=== PATIENT | male | born 1960 | race Caucasian/White ===

== ENCOUNTER 2016-09-07 13:53 | Inpatient (IN) | payer SELFPAY ==
[~2016-09-07] VITALS: Ht 177.8 cm; Wt 71.7 kg
[~2016-09-07 13:53] MED LIST: ASPI81TA11 PO; ATOR20TA42 PO; HYDRA50 PO; PENT400 PO; PERC5TAB12 PO
[2016-09-07 14:01] VITALS: BP 159/78; PULSE 109; RESP 14; TEMP 98.4; O2SAT 96
--- NOTE | 2016-09-07 14:34 | PD ---
HPI Chief Complaint: Abdominal Pain Time Seen by Provider: 14:29 Travel History International Travel<30 days: No Contact w/Intl Traveler<30days: No Traveled to known affect area: No History of Present Illness HPI 56-year-old male presents to the emergency department for evaluation of generalized abdominal pain that started abruptly 3-4 hours ago. Denies nausea, vomiting, diarrhea, constipation. Patient had aortobifemoral bypass under general anesthesia by Dr. Subrmaanian in March 2016. He also reports history of asthma, but denies taking any current medications. Patient denies any other previous abdominal surgeries. Patient denies any fevers or chills. He complains of epigastric abdominal tenderness, but denies any chest pain or shortness of breath.. PFSH Past Medical History Asthma: Yes Cancer: No Cardiovascular Problems: Yes Diabetes: No Diminished Hearing: No Endocrine: No Genitourinary: No Hepatitis: No Hiatal Hernia: No Immune Disorder: No Musculoskeletal: No Neurologic: No Psychiatric: No Reproductive: No Respiratory: Yes (asthma) Thyroid Disease: No Past Surgical History Abdominal Surgery: No AICD: No Cardiac Surgery: No Ear Surgery: No Endocrine Surgery: No Eye Surgery: No Genitourinary Surgery: No Gynecologic Surgery: No Joint Replacement: No Oral Surgery: No Pacemaker: No Thoracic Surgery: No Tonsillectomy: Yes Social History Alcohol Use: Yes (SOC) Tobacco Use: Yes (1PPD) Substance Use: No Allergies-Medications (Allergen,Severity, Reaction): Coded Allergies: No Known Allergies (Verified , 09/07/16) Reported Meds & Prescriptions Reported Meds & Active Scripts Active Reported Aspirin 81 Mg Chew 81 Mg CHEW DAILY Review of Systems Except as stated in HPI: all other systems reviewed are Neg Physical Exam Narrative GENERAL: Well-developed well-nourished male patient, ambulatory. Afebrile. SKIN: Warm and dry. HEAD: Normocephalic. Atraumatic. EYES: No scleral icterus. No injection or drainage. NECK: Supple, trachea midline. No JVD or lymphadenopathy. CARDIOVASCULAR: Regular rate and rhythm without murmurs, gallops, or rubs. RESPIRATORY: Breath sounds equal bilaterally. No accessory muscle use. Lungs sounds are clear to auscultation. GASTROINTESTINAL: Abdomen soft and nondistended. Patient has generalized tenderness to palpation. MUSCULOSKELETAL: No cyanosis, or edema. BACK: Nontender without obvious deformity. No CVA tenderness. Data Data Last Documented VS Vital Signs Date Time Temp Pulse Resp B/P Pulse Ox O2 Delivery O2 Flow Rate FiO2 09/07/16 16:54 97 16 172/82 95 Room Air 09/07/16 14:01 98.4 Orders Complete Blood Count With Diff (09/07/16 14:27) Comprehensive Metabolic Panel (09/07/16 14:27) Lipase (09/07/16 14:27) Urinalysis - C+S If Indicated (09/07/16 14:27) Electrocardiogram (09/07/16 14:27) Ct Abd/Pel W Iv Contrast(Rout) (09/07/16 17:11) Sodium Chlor 0.9% 1000 Ml Inj (Ns 1000 M (09/07/16 17:15) Labs Laboratory Tests Test 09/07/16 15:00 White Blood Count 23.5 TH/MM3 Red Blood Count 4.68 MIL/MM3 Hemoglobin 14.3 GM/DL Hematocrit 41.7 % Mean Corpuscular Volume 89.0 FL Mean Corpuscular Hemoglobin 30.6 PG Mean Corpuscular Hemoglobin 34.4 % Concent Red Cell Distribution Width 14.4 % Platelet Count 345 TH/MM3 Mean Platelet Volume 8.3 FL Neutrophils (%) (Auto) 95.3 % Lymphocytes (%) (Auto) 1.6 % Monocytes (%) (Auto) 2.8 % Eosinophils (%) (Auto) 0.0 % Basophils (%) (Auto) 0.3 % Neutrophils # (Auto) 22.4 TH/MM3 Lymphocytes # (Auto) 0.4 TH/MM3 Monocytes # (Auto) 0.7 TH/MM3 Eosinophils # (Auto) 0.0 TH/MM3 Basophils # (Auto) 0.1 TH/MM3 CBC Comment DIFF FINAL Differential Comment Sodium Level 139 MEQ/L Potassium Level 3.8 MEQ/L Chloride Level 102 MEQ/L Carbon Dioxide Level 30.1 MEQ/L Anion Gap 7 MEQ/L Blood Urea Nitrogen 10 MG/DL Creatinine 0.89 MG/DL Estimat Glomerular Filtration 88 ML/MIN Rate Random Glucose 92 MG/DL Calcium Level 8.7 MG/DL Total Bilirubin 2.6 MG/DL Aspartate Amino Transf 163 U/L (AST/SGOT) Alanine Aminotransferase 122 U/L (ALT/SGPT) Alkaline Phosphatase 569 U/L Total Protein 7.1 GM/DL Albumin 3.1 GM/DL Lipase GREATER THAN 73321 U/L MDM Medical Decision Making Medical Screen Exam Complete: Yes Emergency Medical Condition: Yes Medical Record Reviewed: Yes Differential Diagnosis Pancreatitis versus gastroenteritis versus diverticulitis Narrative Course 56-year-old male presents to the emergency department for evaluation of abdominal pain that started 3-4 hours prior to arrival. EKG, CBC, CMP, lipase are ordered and pending. Workup is initiated in triage. Patient will be moved to medical pod for further evaluation and disposition. Patricia Gibbs Sep 07, 2016 14:33
[2016-09-07] MEDS ORDERED: ASPI81CH CHEW (15:08)
[2016-09-07 15:23] LABS: AUTOMATED NEUTROPHIL # 22.4 TH/MM3 (1.8-7.7); BASOPHIL # 0.1 TH/MM3 (0-0.2); BASOPHIL % 0.3 % (0.0-2.0); HEMATOCRIT 41.7 % (39.0-51.0); HEMO FLAGS DIFF FINAL; LYMPH % 1.6 % (9.0-44.0); LYMPHOCYTE # 0.4 TH/MM3 (1.0-4.8); MEAN CORPUSCULAR HEMOGLOBIN 30.6 PG (27.0-34.0); MEAN CORPUSCULAR HGB CONC 34.4 % (32.0-36.0); MONO % 2.8 % (0.0-8.0); NEUT % 95.3 % (16.0-70.0); PLATELET COUNT 345 TH/MM3 (150-450); RED BLOOD COUNT 4.68 MIL/MM3 (4.50-5.90); RED CELL DISTRIBUTION WIDTH 14.4 % (11.6-17.2); WHITE BLOOD COUNT 23.5 TH/MM3 (4.0-11.0)
[2016-09-07 16:04] LABS: ALKALINE PHOSPHATASE 569 U/L (45-117); ALT (GPT) 122 U/L (12-78); ANION GAP 7 MEQ/L (5-15); AST (GOT) 163 U/L (15-37); BICARBONATE 30.1 MEQ/L (21.0-32.0); BLOOD UREA NITROGEN 10 MG/DL (7-18); CHLORIDE 102 MEQ/L (98-107); GLOMERULAR FILTRATION RATE 88 ML/MIN (>89); POTASSIUM 3.8 MEQ/L (3.5-5.1); SODIUM (NA) 139 MEQ/L (136-145); TOTAL BILIRUBIN ADULT 2.6 MG/DL (0.2-1.0)
--- NOTE | 2016-09-07 16:52 | EKG ---
Date Performed: 09/07/2016 Time Performed: 15:06:38 PTAGE: 56 years EKG: SINUS TACHYCARDIA ABNORMAL RHYTHM ECG COMPARED TO PRIOR ELECTROCARDIOGRAM, Rate has increas ed. PREVIOUS TRACING : 04/18/2016 14.59 DOCTOR: Axel Castellano Interpretating Date/Time 09/07/2016 16:51:51
[2016-09-07 16:54] VITALS: BP 172/82; PULSE 97; RESP 16; O2SAT 95
[2016-09-07] MEDS ORDERED: SODIUM CHLOR 0.9% 1000 ML INJ 1,000 ML IV ONE (17:15)
--- NOTE | 2016-09-07 17:35 | PD ---
Physical Exam Date Seen by Provider: Sep 07, 2016 Data Data Last Documented VS Vital Signs Date Time Temp Pulse Resp B/P Pulse Ox O2 Delivery O2 Flow Rate FiO2 09/07/16 16:54 97 16 172/82 95 Room Air 09/07/16 14:01 98.4 Orders Complete Blood Count With Diff (09/07/16 14:27) Comprehensive Metabolic Panel (09/07/16 14:27) Lipase (09/07/16 14:27) Urinalysis - C+S If Indicated (09/07/16 14:27) Electrocardiogram (09/07/16 14:27) Ct Abd/Pel W Iv Contrast(Rout) (09/07/16 17:11) Sodium Chlor 0.9% 1000 Ml Inj (Ns 1000 M (09/07/16 17:15) Iohexol 350 Inj (Omnipaque 350 Inj) (09/07/16 18:24) Admit To Inpatient (09/07/16 ) Vital Signs (Adult) Q4H (09/07/16 18:30) Activity Oob Ad Nilda (09/07/16 18:30) Intake + Output BHAVANA.QSHIFT (09/07/16 18:30) Diet Npo (09/07/16 Dinner) Sodium Chlor 0.9% 1000 Ml Inj (Ns 1000 M (09/07/16 18:30) Sodium Chloride 0.9% Flush (Ns Flush) (09/07/16 18:30) Sodium Chloride 0.9% Flush (Ns Flush) (09/07/16 21:00) Morphine Inj (Morphine Inj) (09/07/16 18:30) Ondansetron Inj (Zofran Inj) (09/07/16 18:30) Lipase (09/08/16 06:00) Comprehensive Metabolic Panel (09/07/16 18:30) Enoxaparin Inj (Lovenox Inj) (09/07/16 18:30) Inpatient Certification (09/07/16 ) Labs Laboratory Tests Test 09/07/16 15:00 White Blood Count 23.5 TH/MM3 Red Blood Count 4.68 MIL/MM3 Hemoglobin 14.3 GM/DL Hematocrit 41.7 % Mean Corpuscular Volume 89.0 FL Mean Corpuscular Hemoglobin 30.6 PG Mean Corpuscular Hemoglobin 34.4 % Concent Red Cell Distribution Width 14.4 % Platelet Count 345 TH/MM3 Mean Platelet Volume 8.3 FL Neutrophils (%) (Auto) 95.3 % Lymphocytes (%) (Auto) 1.6 % Monocytes (%) (Auto) 2.8 % Eosinophils (%) (Auto) 0.0 % Basophils (%) (Auto) 0.3 % Neutrophils # (Auto) 22.4 TH/MM3 Lymphocytes # (Auto) 0.4 TH/MM3 Monocytes # (Auto) 0.7 TH/MM3 Eosinophils # (Auto) 0.0 TH/MM3 Basophils # (Auto) 0.1 TH/MM3 CBC Comment DIFF FINAL Differential Comment Sodium Level 139 MEQ/L Potassium Level 3.8 MEQ/L Chloride Level 102 MEQ/L Carbon Dioxide Level 30.1 MEQ/L Anion Gap 7 MEQ/L Blood Urea Nitrogen 10 MG/DL Creatinine 0.89 MG/DL Estimat Glomerular Filtration 88 ML/MIN Rate Random Glucose 92 MG/DL Calcium Level 8.7 MG/DL Total Bilirubin 2.6 MG/DL Aspartate Amino Transf 163 U/L (AST/SGOT) Alanine Aminotransferase 122 U/L (ALT/SGPT) Alkaline Phosphatase 569 U/L Total Protein 7.1 GM/DL Albumin 3.1 GM/DL Lipase GREATER THAN 05393 U/L [facility] Medical Record Reviewed: Yes Supervised Visit with LEILA: Yes Interpretation(s) Vital Signs Date Time Temp Pulse Resp B/P Pulse Ox O2 Delivery O2 Flow Rate FiO2 09/07/16 16:54 97 16 172/82 95 Room Air 09/07/16 14:01 98.4 109 14 159/78 96 Room Air Laboratory Tests Test 09/07/16 15:00 White Blood Count 23.5 TH/MM3 (4.0-11.0) Red Blood Count 4.68 MIL/MM3 (4.50-5.90) Hemoglobin 14.3 GM/DL (13.0-17.0) Hematocrit 41.7 % (39.0-51.0) Mean Corpuscular Volume 89.0 FL (80.0-100.0) Mean Corpuscular Hemoglobin 30.6 PG (27.0-34.0) Mean Corpuscular Hemoglobin 34.4 % Concent (32.0-36.0) Red Cell Distribution Width 14.4 % (11.6-17.2) Platelet Count 345 TH/MM3 (150-450) Mean Platelet Volume 8.3 FL (7.0-11.0) Neutrophils (%) (Auto) 95.3 % (16.0-70.0) Lymphocytes (%) (Auto) 1.6 % (9.0-44.0) Monocytes (%) (Auto) 2.8 % (0.0-8.0) Eosinophils (%) (Auto) 0.0 % (0.0-4.0) Basophils (%) (Auto) 0.3 % (0.0-2.0) Neutrophils # (Auto) 22.4 TH/MM3 (1.8-7.7) Lymphocytes # (Auto) 0.4 TH/MM3 (1.0-4.8) Monocytes # (Auto) 0.7 TH/MM3 (0-0.9) Eosinophils # (Auto) 0.0 TH/MM3 (0-0.4) Basophils # (Auto) 0.1 TH/MM3 (0-0.2) CBC Comment DIFF FINAL Differential Comment Sodium Level 139 MEQ/L (136-145) Potassium Level 3.8 MEQ/L (3.5-5.1) Chloride Level 102 MEQ/L (98-107) Carbon Dioxide Level 30.1 MEQ/L (21.0-32.0) Anion Gap 7 MEQ/L (5-15) Blood Urea Nitrogen 10 MG/DL (7-18) Creatinine 0.89 MG/DL (0.60-1.30) Estimat Glomerular Filtration 88 ML/MIN (>89) Rate Random Glucose 92 MG/DL (74-106) Calcium Level 8.7 MG/DL (8.5-10.1) Total Bilirubin 2.6 MG/DL (0.2-1.0) Aspartate Amino Transf 163 U/L (15-37) (AST/SGOT) Alanine Aminotransferase 122 U/L (12-78) (ALT/SGPT) Alkaline Phosphatase 569 U/L (45-117) Total Protein 7.1 GM/DL (6.4-8.2) Albumin 3.1 GM/DL (3.4-5.0) Lipase GREATER THAN 28087 U/L (73-393) Differential Diagnosis acute cholecystitis, pancreatitis, gastritis, PUD, GERD ACS Narrative Course I, Dr. Hdez, have reviewed the advance practice practitioner's documentation and am in agreement, met with the patient face to face, made the diagnosis, and the medical decision making was done by me. *My assessment and Findings: Patient is a 56-year-old male who presents to emergency room with complaints of abdominal pain which started around lunchtime today. Reports that he felt nauseous and had epigastric pain. Denies vomiting. Denies fevers, reports that he has been having chills. Patient reports that he felt similar symptoms last week but reports his symptoms resolved shortly after a few minutes. Patient reports that he was concerned today as symptoms have been persistent and unrelenting. Reports that the only surgery has had is aorticbifemoral bypass surgery by Dr. Subramanian. Patient reports that he does not drink daily, reports that sometimes he does have drinks but it is rare. Patient denies chest pain or shortness of breath at this time. Patient denies cough or congestion. Patient with no other complaints. CBC WBC 23.5 Hemoglobin 14.3 Hematocrit 41.7 Platelets 345 BMP Sodium 139 Chloride 102 Potassium 3.8 Carbon dioxide 30.1 BUN 7 Creatinine 0.9 AST 162 ALT 122 Alkaline phosphatase 569 Lipase greater than 150,000 Patient with epigastric pain, patient with lipase of greater than 150,000, patient with acute pancreatitis. CT of the abdomen and pelvis ordered for further evaluation of symptoms. case reviewed with Dr. Ellis who accepts pt to service I did review all studies with patient in detail. Diagnosis Primary Impression: Acute pancreatitis Qualified Code: K85.90 - Acute pancreatitis, unspecified complication status, unspecified pancreatitis type Admitting Information Admitting Physician Requests: Admit Maggie Hdez DO Sep 07, 2016 17:35
[2016-09-07] MEDS ORDERED: IOHEXOL 350 MG/ML 10 ML VIAL (for RAD DIAG) IV ONE (18:24)
[2016-09-07] MEDS ORDERED: SODIUM CHLORIDE 0.9% FLUSH 5 ML FLUSH IV PRN (18:30)
--- NOTE | 2016-09-07 18:48 | RADRPT ---
EXAM DATE/TIME: 09/07/2016 18:09 [place] COMPARISON: No previous studies available for comparison. INDICATIONS : Abdominal pain and nausea. IV CONTRAST: 94 cc Omnipaque 350 (iohexol) IV ORAL CONTRAST: No oral contrast ingested. RADIATION DOSE: 4.94 CTDIvol (mGy) MEDICAL HISTORY : Cardiovascular disease. Hypertension. SURGICAL HISTORY : None. ENCOUNTER: Initial ACUITY: 1 day PAIN SCALE: 8/10 LOCATION: Bilateral lower quadrant TECHNIQUE: Volumetric scanning of the abdomen and pelvis was performed. Using automated exposure control and ad justment of the mA and/or kV according to patient size, radiation dose was kept as low as reasonably achievable to obtain optimal diagnostic quality images. FINDINGS: Lung bases are clear. There is intrahepatic and extra hepatic biliary ductal dilatation with common bile duct measuring up to 16 mm in diameter. There are some filling defects in the distal common bile duct characteristic of choledocholithiasis. No focal abnormalities in the spleen, adrenals or kidneys. Pancreatic duct is mildly prominent. No pa ncreatic mass identified. Aortobifemoral graft is present. No free air or free fluid. No bowel obstruction. No acute bony abnormality. CONCLUSION: 1. Biliary ductal dilatation to 16 mm with findings most characteristic of choledocholithiasis in the distal common bile duct. 2. Aortobifemoral graft which appears patent. 3. No bowel obstruction or free fluid. 4. Healing right posterior 12th rib fracture with callus formation. Ian Hammond MD on September 07, 2016 at 18:39 Board Certified Radiologist. This report was verified electronically.
[2016-09-07 19:45] LABS: BLOOD, URINE NEG (NEG); GLUCOSE,URINE NEG (NEG); KETONE, URINE NEG (NEG); NITRITE,URINE NEG (NEG); PH, URINE 7.5 (5.0-8.5); URINE COLOR YELLOW (YELLW/STRAW)
[2016-09-07 19:50] LABS: COMMENT (UR) CULT NOT INDICATED; CULTURE IF INDICATED CULT NOT INDICATED
[2016-09-07] MEDS: ENOXAPARIN SODIUM 40 MG/0.4 ML SYRINGE SQ SCH (20:26)
[2016-09-07] MEDS: SODIUM CHLOR 0.9% 1000 ML INJ 1,000 ML IV SCH (20:26)
[2016-09-07 20:31] VITALS: BP 130/69; PULSE 100; RESP 18; O2SAT 98
[2016-09-07] MEDS: SODIUM CHLORIDE 0.9% FLUSH 5 ML FLUSH IV SCH (20:51)
--- NOTE | 2016-09-07 22:54 | HHI.HP ---
[facility] Service [facility] Primary Care Physician No Primary Care Physician Admission Diagnosis Acute Pancreatitis Diagnoses: Chief Complaint: Epigastric pain Travel History International Travel<30 Days: No Contact w/Intl Traveler <30 Da: No Traveled to Known Affected Are: No History of Present Illness This is a 56-year-old male without significant past medical history who presents complaining of abdominal pain which is localized in the epigastrium, severe, 10 foci tenderness per the patient, stabbing and constant. The patient denies any associated nausea, vomiting or diarrhea. The patient also denies any fevers or chills. Denies chest pain or shortness of breath. Patient states that moving would make the pain worse as well as walking and pain improved lying down and with pain medications. The patient also denies any hematuria. Review of Systems Other As per history of present illness, other systems reviewed by me and negative. Past Family Social History Past Medical History Denies diabetes and hypertension. Past Surgical History Tonsillectomy Reported Medications Aspirin 81 Mg Chew 81 Mg CHEW DAILY Allergies: Coded Allergies: No Known Allergies (Verified , 09/07/16) Active Ordered Medications Current Medications Medications (Trade) Dose Ordered Sig/Valentin Route Start Time Stop Time Status Last Admin (NS 1000 ml Inj) 1,000 ml @ 200 mls/hr Q5H IV 09/07/16 20:00 09/08/16 04:23 (NS Flush) 2 ml UNSCH PRN IV 09/07/16 18:30 (NS Flush) 2 ml BID IV 09/07/16 21:00 09/07/16 20:51 (Morphine Inj) 4 mg Q3H PRN IV 09/07/16 19:45 (Zofran Inj) 4 mg Q6H PRN IV 09/07/16 18:30 (Lovenox Inj) 40 mg Q24H SQ 09/07/16 20:00 09/07/16 20:26 Family History Diabetes in patient's mother Social History Patient states he is a smoker. States he smokes 1 pack per day but is trying to quit Drinks alcohol rarely. Denies illicit drug use. Physical Exam Vital Signs Vital Signs Date Time Temp Pulse Resp B/P Pulse Ox O2 Delivery O2 Flow Rate FiO2 09/07/16 20:31 100 18 130/69 98 Room Air 09/07/16 16:54 97 16 172/82 95 Room Air 09/07/16 14:01 98.4 109 14 159/78 96 Room Air Physical Exam GENERAL: This is a well-nourished, well-developed patient, in no apparent distress. SKIN: No rashes, ecchymoses or lesions. Cool and dry. HEAD: Atraumatic. Normocephalic. No temporal or scalp tenderness. EYES: Pupils equal round and reactive. Extraocular motions intact. No scleral icterus. No injection or drainage. ENT: Nose without bleeding, purulent drainage or septal hematoma. Throat without erythema, tonsillar hypertrophy or exudate. Uvula midline. Airway patent. NECK: Trachea midline. No JVD or lymphadenopathy. Supple, nontender, no meningeal signs. CARDIOVASCULAR: Regular rate and rhythm without murmurs, gallops, or rubs. RESPIRATORY: Clear to auscultation. Breath sounds equal bilaterally. No wheezes , rales, or rhonchi. GASTROINTESTINAL: Abdomen soft, tender to palpation on epigastric region, nondistended. No hepato-splenomegaly, or palpable masses. There is voluntary guarding. MUSCULOSKELETAL: Extremities without clubbing, cyanosis, or edema. No joint tenderness, effusion, or edema noted. No calf tenderness. Negative Homans sign bilaterally. NEUROLOGICAL: Awake and alert. Cranial nerves II through XII intact. Motor and sensory grossly within normal limits. Five out of 5 muscle strength in all muscle groups. Normal speech. Laboratory Laboratory Tests Test 09/07/16 09/07/16 15:00 19:29 White Blood Count 23.5 Red Blood Count 4.68 Hemoglobin 14.3 Hematocrit 41.7 Mean Corpuscular Volume 89.0 Mean Corpuscular Hemoglobin 30.6 Mean Corpuscular Hemoglobin 34.4 Concent Red Cell Distribution Width 14.4 Platelet Count 345 Mean Platelet Volume 8.3 Neutrophils (%) (Auto) 95.3 Lymphocytes (%) (Auto) 1.6 Monocytes (%) (Auto) 2.8 Eosinophils (%) (Auto) 0.0 Basophils (%) (Auto) 0.3 Neutrophils # (Auto) 22.4 Lymphocytes # (Auto) 0.4 Monocytes # (Auto) 0.7 Eosinophils # (Auto) 0.0 Basophils # (Auto) 0.1 CBC Comment DIFF FINAL Differential Comment Sodium Level 139 Potassium Level 3.8 Chloride Level 102 Carbon Dioxide Level 30.1 Anion Gap 7 Blood Urea Nitrogen 10 Creatinine 0.89 Estimat Glomerular Filtration 88 Rate Random Glucose 92 Calcium Level 8.7 Total Bilirubin 2.6 Aspartate Amino Transf 163 (AST/SGOT) Alanine Aminotransferase 122 (ALT/SGPT) Alkaline Phosphatase 569 Total Protein 7.1 Albumin 3.1 Lipase GREATER THAN 24647 Urine Color YELLOW Urine Turbidity CLEAR Urine pH 7.5 Urine Specific [place] 1.040 Urine Protein NEG Urine Glucose (UA) NEG Urine Ketones NEG Urine Occult Blood NEG Urine Nitrite NEG Urine Bilirubin NEG Urine Urobilinogen 2.0 Urine Leukocyte Esterase NEG Urine RBC 1 Urine WBC LESS THAN 1 Microscopic Urinalysis Comment CULT NOT INDICATED Result Diagram: 09/07/16 1500 09/07/16 1500 Imaging Last Impressions Abdomen/Pelvis CT 09/07/16 1711 Signed Impressions: Service Date/Time: Wednesday, September 07, 2016 18:09 - CONCLUSION: 1. Biliary ductal dilatation to 16 mm with findings most characteristic of choledocholithiasis in the distal common bile duct. 2. Aortobifemoral graft which appears patent. 3. No bowel obstruction or free fluid. 4. Healing right posterior 12th rib fracture with callus formation. Ian Hammond MD Reviewed by me Assessment and Plan Problem List: (1) SIRS (systemic inflammatory response syndrome) ICD Code: R65.10 Status: Acute Plan: Present on admission. No fevers. Likely secondary to acute pancreatitis secondary to gallstones. CT abdomen and pelvis as above shows very ductal dilatation. Admit the patient to the medical/surgical floor, placed on IV fluids and aggressive hydration Pain control with IV morphine (2) Gallstone pancreatitis ICD Code: K85.10 Status: Acute Plan: Consult GI for his first ERCP We'll consult general surgery for cholecystectomy on this admission after the pancreatitis subsides. Lipase greater [place] 26671 - monitor lipase and serial abdominal exams (3) PAD (peripheral artery disease) ICD Code: I73.9 Status: Acute Plan: Patient on aspirin, will hold the possible invasive procedure. Assessment and Plan Patient Code Status Full code Physician Certification 2 Midnight Certification Type: Admission for Inpatient Services Order for Inpatient Services The services are ordered in accordance with Medicare regulations or non- Medicare payer requirements, as applicable. In the case of services not specified as inpatient-only, they are appropriately provided as inpatient services in accordance with the 2-midnight benchmark. Estimated LOS (days): 2 days is the estimated time the patient will need to remain in the hospital, assuming treatment plan goals are met and no additional complications. Post-Hospital Plan: Not yet determined Dontrell Schuster MD Sep 07, 2016 22:54
[2016-09-07 23:14] VITALS: BP 121/64; PULSE 91; RESP 18; TEMP 98; O2SAT 94
[2016-09-08 00:01] LABS: ALKALINE PHOSPHATASE 437 U/L (45-117); ALT (GPT) 107 U/L (12-78); ANION GAP 7 MEQ/L (5-15); AST (GOT) 130 U/L (15-37); BLOOD UREA NITROGEN 8 MG/DL (7-18); CHLORIDE 106 MEQ/L (98-107); GLOMERULAR FILTRATION RATE 106 ML/MIN (>89); POTASSIUM 4.1 MEQ/L (3.5-5.1); SODIUM (NA) 139 MEQ/L (136-145); TOTAL BILIRUBIN ADULT 4.4 MG/DL (0.2-1.0)
[2016-09-08 00:22] VITALS: BP 119/77; PULSE 89; RESP 18; O2SAT 100
[2016-09-08] MEDS: SODIUM CHLOR 0.9% 1000 ML INJ 1,000 ML IV SCH ×5 (04:23→23:37)
[2016-09-08 06:07] VITALS: BP 126/77; PULSE 88; RESP 16; TEMP 98.1; O2SAT 100
[2016-09-08] MEDS: SODIUM CHLORIDE 0.9% FLUSH 5 ML FLUSH IV SCH ×2 (09:00→21:00)
--- NOTE | 2016-09-08 09:04 | PD.CONS ---
HPI History of Present Illness This is a 56 year old who came to the ER for evaluation of abdominal pain. He reports that he started having abdominal pain in his epigastric area that he describes as a constant dull ache that radiated to his lower chest yesterday around 11am. He reports that he has had this pain, although not as severe and only lasting about 10 minutes in the past. This time, it was much more severe and constant and was progressively worsening. He denies any aggravating or alleviating factors. He denies any nausea, vomiting. He had chills most of the day yesterday, but did not take his temperature. His urine has been dark for a couple of months. He denies any jaundice. He has lost weight since having his fem-pop last year- about 20 lbs, but notes he is making better food choices. He denies any known hx of pancreatitis or gallbladder disease. ( Dara Daugherty) PFSH Past Medical History PAD/Claudication Asthma Past Surgical History Tonsillectomy Aortobifemoral bypass (Dara Daugherty) Coded Allergies: No Known Allergies (Verified , 09/07/16) Medications Allergies Coded Allergies Type Severity Reaction Last Updated Verified No Known Allergies 09/07/16 Yes Active Scripts Medications Dose Route/Sig Days Date Category Aspirin 81 Mg Chew 81 Mg CHEW DAILY 09/07/16 Reported Family History Diabetes in patient's mother Social History Patient states he is a smoker. States he smokes 1 pack per day but is trying to quit Drinks alcohol rarely. Denies illicit drug use. (Dara Daugherty) Review of Systems Constitutional: COMPLAINS OF: Fatigue, Weight loss (better food choices), Chills, DENIES: Fever Respiratory: DENIES: Cough Cardiovascular: COMPLAINS OF: Claudication (occasional, but much improved), DENIES: Chest pain Gastrointestinal: COMPLAINS OF: Abdominal pain, DENIES: Black stools, Bloody stools, Constipation, Diarrhea, Nausea, Vomiting, Heartburn, Hematemesis Musculoskeletal: DENIES: Joint pain Integumentary: COMPLAINS OF: Abnormal pigmentation, DENIES: Jaundice Hematologic/lymphatic: DENIES: Bruising Neurologic: DENIES: Headache Psychiatric: DENIES: Confusion (Dara Daugherty) GI Exam Vitals I&O Vital Signs Date Time Temp Pulse Resp B/P Pulse Ox O2 Delivery O2 Flow Rate FiO2 09/08/16 06:07 98.1 88 16 126/77 100 Room Air 09/08/16 00:22 89 18 119/77 100 Room Air 09/07/16 23:14 98.0 91 18 121/64 94 Room Air 09/07/16 20:31 100 18 130/69 98 Room Air 09/07/16 16:54 97 16 172/82 95 Room Air 09/07/16 14:01 98.4 109 14 159/78 96 Room Air Imaging Last Impressions Abdomen/Pelvis CT 09/07/16 1711 Signed Impressions: Service Date/Time: Wednesday, September 07, 2016 18:09 - CONCLUSION: 1. Biliary ductal dilatation to 16 mm with findings most characteristic of choledocholithiasis in the distal common bile duct. 2. Aortobifemoral graft which appears patent. 3. No bowel obstruction or free fluid. 4. Healing right posterior 12th rib fracture with callus formation. Ian Hammond MD Laboratory Test 09/07/16 09/07/16 09/07/16 09/08/16 15:00 19:29 23:24 05:16 White Blood Count 23.5 TH/MM3 Red Blood Count 4.68 MIL/MM3 Hemoglobin 14.3 GM/DL Hematocrit 41.7 % Mean Corpuscular Volume 89.0 FL Mean Corpuscular Hemoglobin 30.6 PG Mean Corpuscular Hemoglobin 34.4 % Concent Red Cell Distribution Width 14.4 % Platelet Count 345 TH/MM3 Mean Platelet Volume 8.3 FL Neutrophils (%) (Auto) 95.3 % Lymphocytes (%) (Auto) 1.6 % Monocytes (%) (Auto) 2.8 % Eosinophils (%) (Auto) 0.0 % Basophils (%) (Auto) 0.3 % Neutrophils # (Auto) 22.4 TH/MM3 Lymphocytes # (Auto) 0.4 TH/MM3 Monocytes # (Auto) 0.7 TH/MM3 Eosinophils # (Auto) 0.0 TH/MM3 Basophils # (Auto) 0.1 TH/MM3 CBC Comment DIFF FINAL Differential Comment Sodium Level 139 MEQ/L 139 MEQ/L Potassium Level 3.8 MEQ/L 4.1 MEQ/L Chloride Level 102 MEQ/L 106 MEQ/L Carbon Dioxide Level 30.1 MEQ/L 26.0 MEQ/L Anion Gap 7 MEQ/L 7 MEQ/L Blood Urea Nitrogen 10 MG/DL 8 MG/DL Creatinine 0.89 MG/DL 0.76 MG/DL Estimat Glomerular Filtration 88 ML/MIN 106 ML/MIN Rate Random Glucose 92 MG/DL 96 MG/DL Calcium Level 8.7 MG/DL 8.0 MG/DL Total Bilirubin 2.6 MG/DL 4.4 MG/DL Aspartate Amino Transf 163 U/L 130 U/L (AST/SGOT) Alanine Aminotransferase 122 U/L 107 U/L (ALT/SGPT) Alkaline Phosphatase 569 U/L 437 U/L Total Protein 7.1 GM/DL 6.1 GM/DL Albumin 3.1 GM/DL 2.5 GM/DL Lipase GREATER THAN 1424 U/L 23608 U/L Urine Color YELLOW Urine Turbidity CLEAR Urine pH 7.5 Urine Specific [place] 1.040 Urine Protein NEG mg/dL Urine Glucose (UA) NEG mg/dL Urine Ketones NEG mg/dL Urine Occult Blood NEG Urine Nitrite NEG Urine Bilirubin NEG Urine Urobilinogen 2.0 MG/DL Urine Leukocyte Esterase NEG Urine RBC 1 /hpf Urine WBC LESS THAN 1 /hpf Microscopic Urinalysis Comment CULT NOT INDICATED Physical Examination HEENT: Normocephalic; atraumatic; no jaundice. Throat is clear. NECK: Neck is supple, no JVD, no lymphadenopathy. CHEST: CTA CARDIAC: RRR ABDOMEN: Soft, nondistended, nontender; no hepatosplenomegaly; bowel sounds are present in all four quadrants. EXTREMITIES: No clubbing, cyanosis, or edema. SKIN: Normal; no rash; no jaundice. RELOCATION MANAGER: No focal deficits; alert and oriented times three. (Dara DaughertyP) Assessment and Plan Plan ASSESSMENT: - Gallstone pancreatitis. Abdomen/Pelvis CT (09/07/16)----> 1. Biliary ductal dilatation to 16 mm with findings most characteristic of choledocholithiasis in the distal common bile duct. 2. Aortobifemoral graft which appears patent. 3. No bowel obstruction or free fluid. 4. Healing right posterior 12th rib fracture with callus formation. Lipase improving, greater than 15,000----> 1424. Worsening LFTs last night---> T. Bili 4.4, AST 130, ALT 107, Alk Phosph 437. Clinically pain has improved. Will get repeat CBC, LFT now to see if these are still up or trending down. - Choledocholithiasis on CT. Worsening LFTs, although these were done last night. Will get stat CBC, LFT. - Leukocytosis. WBC 22.0. Flagyl, Levaquin,. PLAN: - Plan for ERCP with possible sphincterotomy, stent placement - Obtain consents - NPO - Hold lovenox - CBC, LFT stat - LevaqFlag erickyl - CBC, CMP in am - Will need GS evaluation - Supportive care - Further recommendations to follow based on results of above - Pt seen and examined by Dr. Cohen and myself and this note is written on his behalf (Dara Daugherty) Physician Comments Seen and examined, ERCP today. GS consult. Thank you (Haylee Cohen MD) Dara Daugherty Sep 08, 2016 09:04 Haylee Cohen MD Sep 08, 2016 16:33
[2016-09-08] MEDS: LEVOFLOXACIN 500 MG PREMIX INJ 100 ML IV SCH (09:15)
[2016-09-08 09:17] VITALS: BP 146/78; PULSE 87; RESP 18; O2SAT 99
--- NOTE | 2016-09-08 10:19 | HHI.PR ---
Subjective Remarks No significant pending overnight. No nausea or vomiting. Feeling better. Objective Vitals Vital Signs Date Time Temp Pulse Resp B/P Pulse Ox O2 Delivery O2 Flow Rate FiO2 09/08/16 09:17 87 18 146/78 99 Room Air 09/08/16 06:07 98.1 88 16 126/77 100 Room Air 09/08/16 00:22 89 18 119/77 100 Room Air 09/07/16 23:14 98.0 91 18 121/64 94 Room Air 09/07/16 20:31 100 18 130/69 98 Room Air 09/07/16 16:54 97 16 172/82 95 Room Air 09/07/16 14:01 98.4 109 14 159/78 96 Room Air Result Diagram: 09/07/16 1500 09/07/16 2324 Other Results Item Value Date Time Total Bilirubin 4.4 MG/DL H 09/07/16 2324 Aspartate Amino Transf (AST/SGOT) 130 U/L H 09/07/16 2324 Alanine Aminotransferase (ALT/SGPT) 107 U/L H 09/07/16 2324 Alkaline Phosphatase 437 U/L H 09/07/16 2324 Total Protein 6.1 GM/DL L # 09/07/16 2324 Albumin 2.5 GM/DL L # 09/07/16 2324 Item Value Date Time Lipase 1424 U/L H 09/08/16 0516 Imaging Last 48 hours Impressions Abdomen/Pelvis CT 09/07/16 1711 Signed Impressions: Service Date/Time: Wednesday, September 07, 2016 18:09 - CONCLUSION: 1. Biliary ductal dilatation to 16 mm with findings most characteristic of choledocholithiasis in the distal common bile duct. 2. Aortobifemoral graft which appears patent. 3. No bowel obstruction or free fluid. 4. Healing right posterior 12th rib fracture with callus formation. Ian Hammond MD Objective Remarks GENERAL: This is a well-nourished, well-developed patient, in no apparent distress. CARDIOVASCULAR: Regular rate and rhythm RESPIRATORY: Clear to auscultation. Breath sounds equal bilaterally. No wheezes , rales, or rhonchi. GASTROINTESTINAL: Abdomen soft, mild midepigastric tenderness, no rebound guarding, nondistended. Normal active bowel sounds MUSCULOSKELETAL: Extremities without clubbing, cyanosis, or edema. NEURO: Alert & Oriented x4 to person, place, time, situation. Moves all ext x4 A/P Problem List: (1) SIRS (systemic inflammatory response syndrome) ICD Code: R65.10 Status: Acute (2) Gallstone pancreatitis ICD Code: K85.10 Status: Acute (3) PAD (peripheral artery disease) ICD Code: I73.9 Status: Chronic Assessment and Plan 1. Acute gallstone pancreatitissupportive care, pain control, IV fluid hydration, bowel rest, GI consulted for ERCP today. Gen. surgery also consulted to evaluate for cholecystectomy post pancreatitis and inflammation subsiding. Lipase levels trending down. 2. Systemic inflammatory response syndrome due to acute pancreatitis. 3. History peripheral arterial disease, chroniccontinue with aspirin 4. DVT prophylaxisLovenox, on hold this morning for procedure. Discharge Planning Home when clinically stable Drea Ellis MD Sep 08, 2016 10:19
--- NOTE | 2016-09-08 11:37 | MB ---
cc: CHAR DELEON M.D. DATE OF CONSULTATION 09/08/2016 REASON FOR CONSULTATION Gallstone pancreatitis and choledocholithiasis. HISTORY OF PRESENT ILLNESS Mr. Partida is a pleasant 56-year-old male who presented to the emergency department last evening with complaints of severe epigastric abdominal pain. He was seen and evaluated and noted to have marked laboratory abnormalities, specifically a lipase of greater than 15,000 and a bilirubin of 2.6. He was sent for a CT scan of the abdomen and pelvis which confirmed choledocholithiasis. The patient reports no previous episodes of abdominal pain. He denies any fatty food intolerance. He denies any previous episodes of jaundice. He states his only medical problem is peripheral vascular disease and he apparently had an aortobifemoral bypass by Dr. Subramanian in March of 2016. The patient was seen, evaluate and admitted to the medical service. GI consultation was obtained and plan is for ERCP later today. Surgical consultation was made for the patient's gallstones. The patient denies any nausea, vomiting, fever or chills. He reports dark urine. He states his abdominal pain is improved since when he came in. PAST MEDICAL HISTORY Includes: 1. Peripheral vascular disease 2. Reactive airway disease PAST SURGICAL HISTORY 1. He has had an aorto-bifem in [address] Subramanian. 2. He has also had a tonsillectomy. 3. He had a left knee surgery. ALLERGIES The patient has no known drug allergies. MEDICATIONS He takes no prescribed medications. SOCIAL HISTORY He admits to daily cigarette use about a pack a day and states he drinks alcohol only on a social basis. He denies drug use. REVIEW OF SYSTEMS Please see HPI. PHYSICAL EXAMINATION VITAL SIGNS: Temperature is 98, pulse is 80, blood pressure 120/70, respiratory 20. GENERAL: This is a thin middle-aged male sitting in the emergency room in no apparent distress, watching television. HEENT: Pupils equal and reactive to light. Sclerae are slightly jaundiced. Oropharynx is clear and moist. NECK: Supple. No masses. LUNGS: Clear to auscultation bilaterally. HEART: S1-S2 no murmur. ABDOMEN: Soft, tender in the epigastrium. Negative Jeff sign. He has a large midline incision from xiphoid to pubis. No obvious hernia. EXTREMITIES: Free range of motion x4. NEUROLOGIC: He is alert and oriented x3. LABORATORY DATA White blood cell count is 23, hemoglobin 14, platelet count is 345. Electrolytes are within normal limits. His bilirubin was 2.6 and is currently 4.4. His AST and ALT are elevated at 130 and 107. His alkaline phosphatase is 437. His lipase was greater than 15,000 and is now 1424. IMAGING STUDIES CT scan of the abdomen and pelvis shows a dilated common bile duct concerning for choledocholithiasis. The patient has no significant pancreatitis by CT scan. IMPRESSION Choledocholithiasis and gallstone pancreatitis. PLAN At this point, the patient is going for an ERCP later today. Obviously he will need to be clinically stable before he undergoes an elective cholecystectomy to prevent future episodes. I advised him that if his abdominal pain and lab work normalize in the next several days, we can consider cholecystectomy during this hospitalization. If he develops ongoing pancreatitis secondary to gallstone or possibly after the ERCP, we will need to delay his elective cholecystectomy approximately 2-4 weeks. I advised him that I would follow up on his clinical exam and his laboratory after the ERCP. MD JOSE Alejandre/MARIA G /11:19 AM /11:28 AM
[2016-09-08] MEDS ORDERED: IOHEXOL 350 MG/ML 100 ML BTL (for EPS) OTHER ONE (12:52)
[2016-09-08] MEDS ORDERED: PROPOFOL 200 MG/20 ML AMP IV ONE (13:08)
[2016-09-08] MEDS ORDERED: DO NOT ADM ANY ANTICOAGULANT DRUGS XX PRN (13:19)
[2016-09-08] MEDS: metroNIDAZOLE 500 MG TAB PO SCH ×2 (14:17→22:07)
[2016-09-08] MEDS: ONDANSETRON HCL 4 MG/2 ML VIAL IV PRN (14:17)
--- NOTE | 2016-09-08 14:27 | RADRPT ---
EXAM DATE/TIME: 09/08/2016 12:53 [facility] COMPARISON: CT ABDOMEN & PELVIS W CONTRAST, September 07, 2016, 18:09. INDICATIONS : Obstruction and stent placement. FLUORO TIME: 1.50 minutes IMAGE COUNT: 5 CONTRAST: Instilled by Ordering Physician MEDICAL HISTORY : Cardiovascular disease. Hypertension. SURGICAL HISTORY : None. ENCOUNTER: Subsequent ACUITY: 2 days PAIN SCORE: Non-responsive. LOCATION: Right upper quadrant FINDINGS: An ERCP was performed by the ordering physician. The 5 submitted images demonstrate dilatation of the common bile duct measuring up to greater than 1. 5 cm. There are multiple filling defects within the duct. There is mild central intrahepatic biliary ductal dilatation as well. A sphincterotomy was formed and the indwelling larynx didn't catheter in p lace. The final image #5 of 5 demonstrates multiple residual filling defects in the common bile duct. CONCLUSION: ERCP as above. Connor Blackmon MD on September 08, 2016 at 14:23 Board Certified Radiologist. This report was verified electronically.
[2016-09-08 15:34] VITALS: O2SAT 96
[2016-09-08 15:50] LABS: AUTOMATED NEUTROPHIL # 10.9 TH/MM3 (1.8-7.7); BASOPHIL % 0.4 % (0.0-2.0); EOSINOPHIL # 0.1 TH/MM3 (0-0.4); EOSINOPHIL % 1.1 % (0.0-4.0); HEMATOCRIT 38.7 % (39.0-51.0); HEMO FLAGS DIFF FINAL; LYMPH % 9.1 % (9.0-44.0); LYMPHOCYTE # 1.2 TH/MM3 (1.0-4.8); MEAN CELL VOLUME 89.8 FL (80.0-100.0); MEAN CORPUSCULAR HEMOGLOBIN 30.8 PG (27.0-34.0); MEAN CORPUSCULAR HGB CONC 34.3 % (32.0-36.0); MONO % 4.9 % (0.0-8.0); NEUT % 84.5 % (16.0-70.0); PLATELET COUNT 251 TH/MM3 (150-450); RED BLOOD COUNT 4.31 MIL/MM3 (4.50-5.90); RED CELL DISTRIBUTION WIDTH 14.5 % (11.6-17.2); WHITE BLOOD COUNT 12.9 TH/MM3 (4.0-11.0)
[2016-09-08 16:29] LABS: INDIRECT BILIRUBIN 1.1 MG/DL (0.0-0.8); TOTAL BILIRUBIN ADULT 2.4 MG/DL (0.2-1.0)
[2016-09-08 20:00] VITALS: BP_SYST 118; BP_SYST 121; BP_DIAS 71; BP_DIAS 77; PULSE 64; PULSE 78; RESP 17; TEMP 97; TEMP 98.6; O2SAT 97; O2SAT 98
[2016-09-09] VITALS: BP 117/68; PULSE 62; RESP 17; TEMP 98; O2SAT 97
[2016-09-09 01:34] VITALS: O2SAT 94
[2016-09-09 05:26] LABS: BASOPHIL # 0.1 TH/MM3 (0-0.2); BASOPHIL % 0.8 % (0.0-2.0); EOSINOPHIL # 0.2 TH/MM3 (0-0.4); EOSINOPHIL % 2.3 % (0.0-4.0); HEMATOCRIT 36.2 % (39.0-51.0); HEMO FLAGS DIFF FINAL; LYMPH % 11.7 % (9.0-44.0); LYMPHOCYTE # 1.2 TH/MM3 (1.0-4.8); MEAN CELL VOLUME 90.7 FL (80.0-100.0); MEAN CORPUSCULAR HEMOGLOBIN 30.5 PG (27.0-34.0); MEAN CORPUSCULAR HGB CONC 33.6 % (32.0-36.0); MONO % 7.4 % (0.0-8.0); NEUT % 77.8 % (16.0-70.0); PLATELET COUNT 219 TH/MM3 (150-450); RED BLOOD COUNT 3.99 MIL/MM3 (4.50-5.90); RED CELL DISTRIBUTION WIDTH 14.4 % (11.6-17.2); WHITE BLOOD COUNT 10.3 TH/MM3 (4.0-11.0)
[2016-09-09] MEDS: metroNIDAZOLE 500 MG TAB PO SCH ×3 (05:44→20:50)
[2016-09-09] MEDS: SODIUM CHLOR 0.9% 1000 ML INJ 1,000 ML IV SCH ×3 (05:45→20:51)
[2016-09-09 05:54] LABS: INDIRECT BILIRUBIN 0.5 MG/DL (0.0-0.8)
[2016-09-09] MEDS: LEVOFLOXACIN 500 MG PREMIX INJ 100 ML IV SCH (07:38)
[2016-09-09] MEDS: ONDANSETRON HCL 4 MG/2 ML VIAL IV PRN (07:39)
[2016-09-09] MEDS: SODIUM CHLORIDE 0.9% FLUSH 5 ML FLUSH IV SCH ×2 (07:43→20:50)
[2016-09-09 08:00] VITALS: BP 125/69; PULSE 67; RESP 16; TEMP 97.2; O2SAT 94
[2016-09-09 12:00] VITALS: BP 131/79; PULSE 63; RESP 16; TEMP 97.2; O2SAT 95
--- NOTE | 2016-09-09 12:20 | HHI.GIFU ---
Subjective Remarks Resting in bed. Mild nausea, but much improved. Pain much improved. No fever. (Dara Daugherty) Objective Vitals I&O Vital Signs Date Time Temp Pulse Resp B/P Pulse Ox O2 Delivery O2 Flow Rate FiO2 09/09/16 08:00 97.2 67 16 125/69 94 09/09/16 01:34 94 21 09/09/16 00:00 98.0 62 17 117/68 97 09/08/16 20:00 98.6 64 17 121/71 97 09/08/16 15:34 96 21 09/08/16 13:55 97.8 71 16 125/72 96 Room Air 09/08/16 13:45 73 16 124/78 96 09/08/16 13:30 76 16 122/80 95 Room Air 09/08/16 13:18 98.1 100 20 123/78 97 Room Air I/O 09/08/16 09/08/16 09/08/16 09/09/16 09/09/16 09/09/16 07:00 15:00 23:00 07:00 15:00 23:00 Intake Total 990 ml 480 ml 1065 ml 760 ml Output Total 155 ml 200 ml 300 ml Balance 835 ml 280 ml 765 ml 760 ml Intake Oral 240 ml 480 ml 240 ml IV Total 50 ml 825 ml 760 ml Other 700 ml Output Urine Total 150 ml 200 ml 300 ml Estimated Blood Loss 5 ml # Voids 0 # Bowel Movements 0 Laboratory Laboratory Tests Test 09/08/16 09/09/16 15:23 04:43 White Blood Count 12.9 10.3 Red Blood Count 4.31 3.99 Hemoglobin 13.3 12.2 Hematocrit 38.7 36.2 Mean Corpuscular Volume 89.8 90.7 Mean Corpuscular Hemoglobin 30.8 30.5 Mean Corpuscular Hemoglobin 34.3 33.6 Concent Red Cell Distribution Width 14.5 14.4 Platelet Count 251 219 Mean Platelet Volume 8.8 8.7 Neutrophils (%) (Auto) 84.5 77.8 Lymphocytes (%) (Auto) 9.1 11.7 Monocytes (%) (Auto) 4.9 7.4 Eosinophils (%) (Auto) 1.1 2.3 Basophils (%) (Auto) 0.4 0.8 Neutrophils # (Auto) 10.9 8.0 Lymphocytes # (Auto) 1.2 1.2 Monocytes # (Auto) 0.6 0.8 Eosinophils # (Auto) 0.1 0.2 Basophils # (Auto) 0.0 0.1 CBC Comment DIFF FINAL DIFF FINAL Differential Comment Total Bilirubin 2.4 1.0 Direct Bilirubin 1.3 0.5 Indirect Bilirubin 1.1 0.5 Aspartate Amino Transf 62 33 (AST/SGOT) Alanine Aminotransferase 83 62 (ALT/SGPT) Alkaline Phosphatase 378 312 Total Protein 6.1 5.6 Albumin 2.4 2.2 Lipase 106 Imaging Last Impressions GI Procedure 09/08/16 0000 Signed Impressions: Service Date/Time: August 12:53 - CONCLUSION: ERCP as above. Connor Blackmon MD Abdomen/Pelvis CT 09/07/16 1711 Signed Impressions: Service Date/Time: Wednesday, September 07, 2016 18:09 - CONCLUSION: 1. Biliary ductal dilatation to 16 mm with findings most characteristic of choledocholithiasis in the distal common bile duct. 2. Aortobifemoral graft which appears patent. 3. No bowel obstruction or free fluid. 4. Healing right posterior 12th rib fracture with callus formation. Ian Hammond MD Physical Exam HEENT: Normocephalic; atraumatic; no jaundice. Throat is clear. NECK: Neck is supple, no JVD, no lymphadenopathy. CHEST: CTA. CARDIAC: RRR ABDOMEN: Soft, nondistended, mild epigastric tenderness; no hepatosplenomegaly ; bowel sounds are present in all four quadrants. EXTREMITIES: No clubbing, cyanosis, or edema. SKIN: Normal; no rash; no jaundice. DEPARTMENT HELPER: No focal deficits; alert and oriented times three. (Dara Daugherty [facility]) Assessment and Plan Plan ASSESSMENT: - Gallstone pancreatitis. Abdomen/Pelvis CT (09/07/16)----> 1. Biliary ductal dilatation to 16 mm with findings most characteristic of choledocholithiasis in the distal common bile duct. 2. Aortobifemoral graft which appears patent. 3. No bowel obstruction or free fluid. 4. Healing right posterior 12th rib fracture with callus formation. S/P ERCP with sphincterotomy, balloon extraction, stent placement (09/08/16)---> choledocholithiasis, periampullary diverticulum. LFTs improving, T. Bili 1.0, AST 33, ALT 62, Alk PHopsh 312. Lipase normalized. Wants to eat. GS consulted. - Choledocholithiasis on CT. S/P ERCP with sphincterotomy, balloon extraction, stent placement (09/08/16)---> choledocholithiasis, periampullary diverticulum. LFTs improving - Leukocytosis. IMPROVED. WBC 10.3. Flagyl, Levaquin,. PLAN: - Lowfat diet - Cont. Abx - GS evaluation - GI will sign off, please reconsult as needed - Pt seen and examined by Dr. Cohen and myself and this note is written on his behalf (Dara Daugherty) Physician Comments Seen and examined with JODEE< doing well post ERCP. Needs cholecystectomy, surgery consulted. Needs fu ercp /stent removal in 04 06 weeks. Please have fu with gi upon dc. Thank you. (Haylee Cohen MD) Dara Daugherty Sep 09, 2016 12:20 Haylee Cohen MD Sep 09, 2016 16:50
--- NOTE | 2016-09-09 14:57 | HHI.PR ---
Subjective Remarks Follow-up pancreatitis. Objective Vitals Vital Signs Date Time Temp Pulse Resp B/P Pulse Ox O2 Delivery O2 Flow Rate FiO2 09/09/16 12:00 97.2 63 16 131/79 95 09/09/16 08:00 97.2 67 16 125/69 94 09/09/16 01:34 94 21 09/09/16 00:00 98.0 62 17 117/68 97 09/08/16 20:00 98.6 64 17 121/71 97 09/08/16 15:34 96 21 I/O 09/08/16 09/08/16 09/08/16 09/09/16 09/09/16 09/09/16 07:00 15:00 23:00 07:00 15:00 23:00 Intake Total 990 ml 480 ml 1065 ml 760 ml Output Total 155 ml 200 ml 300 ml Balance 835 ml 280 ml 765 ml 760 ml Intake Oral 240 ml 480 ml 240 ml IV Total 50 ml 825 ml 760 ml Other 700 ml Output Urine Total 150 ml 200 ml 300 ml Estimated Blood Loss 5 ml # Voids 0 # Bowel Movements 0 Result Diagram: 09/09/16 0443 09/07/16 2324 Imaging Last Impressions GI Procedure 09/08/16 0000 Signed Impressions: Service Date/Time: August 12:53 - CONCLUSION: ERCP as above. Connor Blackmon MD Abdomen/Pelvis CT 09/07/16 1711 Signed Impressions: Service Date/Time: Wednesday, September 07, 2016 18:09 - CONCLUSION: 1. Biliary ductal dilatation to 16 mm with findings most characteristic of choledocholithiasis in the distal common bile duct. 2. Aortobifemoral graft which appears patent. 3. No bowel obstruction or free fluid. 4. Healing right posterior 12th rib fracture with callus formation. Ian Hammond MD Objective Remarks General: No acute distress. Heart: Regular rate and rhythm. No murmur. Lungs: Clear to auscultation bilaterally. No wheezes, rales, or rhonchi. Breathing is nonlabored. Abdomen: Soft, nontender, nondistended. Extremities: No lower extremity edema. Psych: Alert and oriented. Procedures 09/08/16 ERCP Urinary Catheter: No Vascular Central Line Catheter: No A/P Problem List: (1) SIRS (systemic inflammatory response syndrome) ICD Code: R65.10 Status: Acute (2) Gallstone pancreatitis ICD Code: K85.10 Status: Acute (3) PAD (peripheral artery disease) ICD Code: I73.9 Status: Chronic Assessment and Plan 1. Acute gallstone pancreatitis: Continue supportive care with pain control, IV fluids, bowel rest. Appreciate GI recommendations. Lipase is now within normal limits. Diet advanced. 2. Cholelithiasis: Appreciate general surgery recommendations. Planning for cholecystectomy, possibly during this hospitalization. 3. Leukocytosis: Resolved. 4. History of peripheral arterial disease: Continue aspirin. 5. DVT prophylaxis: Lovenox. Discharge Planning Plan for discharge when cleared by general surgery and tolerating diet. Igor Porter MD Sep 09, 2016 14:57
[2016-09-09 16:00] VITALS: BP 127/68; PULSE 74; RESP 16; TEMP 97.5; O2SAT 98
--- NOTE | 2016-09-09 17:51 | HHI.PR ---
Subjective Subjective Notes feels better today, tolerating some liquids Objective Vitals/I&O Vital Signs Date Time Temp Pulse Resp B/P Pulse Ox O2 Delivery O2 Flow Rate FiO2 09/09/16 16:00 97.5 74 16 127/68 98 09/09/16 01:34 21 09/08/16 13:55 Room Air Labs Laboratory Tests Test 09/09/16 04:43 White Blood Count 10.3 Red Blood Count 3.99 Hemoglobin 12.2 Hematocrit 36.2 Mean Corpuscular Volume 90.7 Mean Corpuscular Hemoglobin 30.5 Mean Corpuscular Hemoglobin 33.6 Concent Red Cell Distribution Width 14.4 Platelet Count 219 Mean Platelet Volume 8.7 Neutrophils (%) (Auto) 77.8 Lymphocytes (%) (Auto) 11.7 Monocytes (%) (Auto) 7.4 Eosinophils (%) (Auto) 2.3 Basophils (%) (Auto) 0.8 Neutrophils # (Auto) 8.0 Lymphocytes # (Auto) 1.2 Monocytes # (Auto) 0.8 Eosinophils # (Auto) 0.2 Basophils # (Auto) 0.1 CBC Comment DIFF FINAL Differential Comment Total Bilirubin 1.0 Direct Bilirubin 0.5 Indirect Bilirubin 0.5 Aspartate Amino Transf 33 (AST/SGOT) Alanine Aminotransferase 62 (ALT/SGPT) Alkaline Phosphatase 312 Total Protein 5.6 Albumin 2.2 Lipase 106 Abdomen: Non-distended, Post-op tenderness, BS normal Narrative Exam mild epigastric tenderness, no rebound. A/P Assessment and Plan Gallstone pancretitis/choledocholithiasis s/p ERCP/stent I advised patient we will try to add on lap yohan this weekend but his case will be low priority as it is considered elective and emergency cases take preference with weekend OR staffing. Nicole Wallace and Manuel will be try to do case if they and OR are available. If not possible to do lap yohan this weekend he can go home on Monday or Monday and I can see him in office to schedule elective cholecystectomy as he has no evidence of acute cholecytitis and has CBD stent to prevent further choledocholithiasis. I gave pt my card to FU in office. Aneudy Melo MD Sep 09, 2016 17:51
[2016-09-09 20:00] VITALS: BP 152/82; PULSE 67; RESP 20; TEMP 98.1; O2SAT 97
[2016-09-09] MEDS: ENOXAPARIN SODIUM 40 MG/0.4 ML SYRINGE SQ SCH (20:50)
[2016-09-10] VITALS: BP 147/81; PULSE 68; RESP 20; TEMP 96.8; O2SAT 95
[2016-09-10] MEDS: SODIUM CHLOR 0.9% 1000 ML INJ 1,000 ML IV SCH ×2 (05:26→13:43)
[2016-09-10] MEDS: metroNIDAZOLE 500 MG TAB PO SCH ×3 (06:00→20:52)
[2016-09-10] MEDS ORDERED: LIDOCAINE 1%/EPINEPHrine 1:100,000 SOLN 30 ML VIAL ONE (07:15)
[2016-09-10] MEDS ORDERED: BUPIVACAINE/EPINEPHRINE 0.5% PF 30 ML VIAL ONE (07:15)
[2016-09-10] MEDS ORDERED: MIDAZOLAM HCL 2 MG/2 ML VIAL ONE (07:28)
[2016-09-10] MEDS ORDERED: ACETAMINOPHEN 1000 MG/100 ML VIAL IV ONE (07:28)
[2016-09-10] MEDS ORDERED: fentaNYL CITRATE 250 MCG/5 ML AMP ONE (07:28)
[2016-09-10] MEDS ORDERED: HYDROmorphone HCL PF 2 MG/ML VIAL ONE (07:28)
[2016-09-10 08:00] VITALS: BP 141/79; PULSE 72; RESP 17; TEMP 97; O2SAT 95
[2016-09-10] MEDS: SODIUM CHLORIDE 0.9% FLUSH 5 ML FLUSH IV SCH ×2 (09:00→20:52)
--- NOTE | 2016-09-10 09:25 | HHI.PR ---
Immediate Post Op Note Procedure Date: Sep 10, 2016 Pre Op Diagnosis: gallstone pancreatitis Post Op Diagnosis: same Surgeon: Jerry Wallace MD Delivery Assistant(s): see OR sheet Procedure: lap yohan Findings: distended gb with stones, adhesions Complications: none Specimen(s) removed: gallbladder Estimated blood loss: 20 Anesthesia: General Drains: None IVF (1700) Patient to: PACU Patient Condition: Good Jerry Wallace MD Sep 10, 2016 09:25
[2016-09-10] MEDS ORDERED: DO NOT ADM ANY ANTICOAGULANT DRUGS XX PRN (09:28)
[2016-09-10] MEDS: LEVOFLOXACIN 500 MG PREMIX INJ 100 ML IV SCH (10:02)
[2016-09-10 12:00] VITALS: PULSE 61; RESP 16; TEMP 95.5; O2SAT 95
[2016-09-10] MEDS ORDERED: PROPOFOL 200 MG/20 ML AMP IV ONE (12:00)
[2016-09-10] MEDS ORDERED: ONDANSETRON HCL 4 MG/2 ML VIAL IV PUSH ONE (12:00)
[2016-09-10] MEDS ORDERED: NEOSTIGMINE 3 MG/3 ML SYR IV ONE (12:00)
[2016-09-10] MEDS ORDERED: PHENYLEPH/NS 1000 MCG/10 ML SYR IV ONE (12:00)
[2016-09-10] MEDS ORDERED: LACTATED RINGER'S 1000 ML INJ 2,000 ML IV ONE (12:00)
--- NOTE | 2016-09-10 12:06 | HHI.PR ---
Subjective Remarks Follow-up abdominal pain. Patient just returned from laparoscopic cholecystectomy. States that he feels "out of it". Does not feel that he will be able to go home today. Objective Vitals Vital Signs Date Time Temp Pulse Resp B/P Pulse Ox O2 Delivery O2 Flow Rate FiO2 09/10/16 10:00 72 14 135/83 97 Nasal Cannula 2 09/10/16 09:45 71 14 113/71 97 Nasal Cannula 2 09/10/16 09:30 97.4 99 14 122/87 98 Nasal Cannula 2 09/10/16 08:00 97.0 72 17 141/79 95 09/10/16 00:00 96.8 68 20 147/81 95 09/09/16 20:00 98.1 67 20 152/82 97 09/09/16 16:00 97.5 74 16 127/68 98 I/O 09/09/16 09/09/16 09/09/16 09/10/16 09/10/16 09/10/16 07:00 15:00 23:00 07:00 15:00 23:00 Intake Total 1065 ml 1720 ml 1387 ml 1025 ml 1900 ml Output Total 300 ml 1000 ml 400 ml 900 ml 20 ml Balance 765 ml 720 ml 987 ml 125 ml 1880 ml Intake Oral 240 ml 960 ml 480 ml 0 ml 0 ml IV Total 825 ml 760 ml 907 ml 1025 ml 100 ml Other 1800 ml Output Urine Total 300 ml 1000 ml 400 ml 900 ml 0 ml Estimated Blood Loss 20 ml Other 0 ml # Bowel Movements 0 0 Result Diagram: 09/09/16 0443 09/07/16 2324 Imaging Last Impressions GI Procedure 09/08/16 0000 Signed Impressions: Service Date/Time: August 12:53 - CONCLUSION: ERCP as above. Connor Blackmon MD Abdomen/Pelvis CT 09/07/16 1711 Signed Impressions: Service Date/Time: Wednesday, September 07, 2016 18:09 - CONCLUSION: 1. Biliary ductal dilatation to 16 mm with findings most characteristic of choledocholithiasis in the distal common bile duct. 2. Aortobifemoral graft which appears patent. 3. No bowel obstruction or free fluid. 4. Healing right posterior 12th rib fracture with callus formation. Ian Hammond MD Objective Remarks General: No acute distress. Heart: Regular rate and rhythm. No murmur. Lungs: Clear to auscultation bilaterally. No wheezes, rales, or rhonchi. Breathing is nonlabored. Abdomen: Soft, nontender, nondistended. Midline surgical scar. Multiple small wounds from laparoscopic surgery today. Appropriately tender to palpation. Mildly distended. Extremities: No lower extremity edema. Psych: Alert and oriented. Procedures 09/08/16 ERCP 09/10/16 laparoscopic cholecystectomy Urinary Catheter: No Vascular Central Line Catheter: No A/P Problem List: (1) SIRS (systemic inflammatory response syndrome) ICD Code: R65.10 Status: Acute (2) Gallstone pancreatitis ICD Code: K85.10 Status: Acute (3) PAD (peripheral artery disease) ICD Code: I73.9 Status: Chronic Assessment and Plan 1. Acute gallstone pancreatitis: Resolved. 2. Cholelithiasis: Appreciate general surgery recommendations. Status post laparoscopic cholecystectomy today. 3. Leukocytosis: Resolved. 4. History of peripheral arterial disease: Continue aspirin. 5. DVT prophylaxis: Lovenox. Discharge Planning Possible discharge home tomorrow if tolerating diet and cleared by general surgery. Igor Porter MD Sep 10, 2016 12:06
[2016-09-10 16:00] VITALS: BP 158/80; PULSE 65; RESP 17; TEMP 95.6; O2SAT 96
[2016-09-10] MEDS: MORPHINE SULFATE 4 MG/ML INJ IV PRN ×2 (16:38→20:52)
[2016-09-10 20:00] VITALS: BP 167/86; PULSE 75; RESP 18; TEMP 97.7; O2SAT 93
[2016-09-10] MEDS: ENOXAPARIN SODIUM 40 MG/0.4 ML SYRINGE SQ SCH (20:52)
[2016-09-11] VITALS: BP 183/95; PULSE 77; RESP 18; TEMP 98; O2SAT 93
[2016-09-11 04:00] VITALS: BP 192/91; PULSE 72; RESP 20; TEMP 98.1; O2SAT 93
[2016-09-11] MEDS: metroNIDAZOLE 500 MG TAB PO SCH ×3 (05:04→21:23)
[2016-09-11] MEDS: MORPHINE SULFATE 4 MG/ML INJ IV PRN (05:05)
[2016-09-11 08:00] VITALS: BP 160/85; PULSE 77; RESP 17; TEMP 97.7; O2SAT 93
[2016-09-11] MEDS: LEVOFLOXACIN 500 MG PREMIX INJ 100 ML IV SCH (08:52)
[2016-09-11] MEDS: SODIUM CHLORIDE 0.9% FLUSH 5 ML FLUSH IV SCH ×2 (08:53→21:22)
[2016-09-11] MEDS ORDERED: ENALAPRILAT 1.25 MG/ML VIAL IV PUSH ONE (09:15)
--- NOTE | 2016-09-11 09:15 | HHI.PR ---
Subjective Subjective Notes no acute issues, tolerating liquids, small flatus Objective Vitals/I&O Vital Signs Date Time Temp Pulse Resp B/P Pulse Ox O2 Delivery O2 Flow Rate FiO2 09/11/16 04:00 98.1 72 20 192/91 93 09/10/16 10:00 Nasal Cannula 2 09/09/16 01:34 21 Cardiovascular: Regular Abdomen: Other (soft mild distension, well healing incisions, mild ttp) A/P Assessment and Plan POD 1 Lap yohan for gallstone pancreatitis PLAN OOB Advance to fulls pain control transition to po pain meds re check labs Jerry Wallace MD Sep 11, 2016 09:15
[2016-09-11] MEDS: SODIUM CHLOR 0.9% 1000 ML INJ 1,000 ML IV SCH ×3 (09:19→21:22)
--- NOTE | 2016-09-11 11:59 | HHI.PR ---
Subjective Remarks Follow up abdominal pain, lap yohan. The patient states that he is feeling better today, but has had a lot of pain overnight. Hoping to go home tomorrow. Objective Vitals Vital Signs Date Time Temp Pulse Resp B/P Pulse Ox O2 Delivery O2 Flow Rate FiO2 09/11/16 09:19 17 09/11/16 08:00 97.7 77 17 160/85 93 09/11/16 04:00 98.1 72 20 192/91 93 09/11/16 00:00 98.0 77 18 183/95 93 09/10/16 20:00 97.7 75 18 167/86 93 09/10/16 16:00 95.6 65 17 158/80 96 09/10/16 12:00 95.5 61 16 95 I/O 09/10/16 09/10/16 09/10/16 09/11/16 09/11/16 09/11/16 07:00 15:00 23:00 07:00 15:00 23:00 Intake Total 1025 ml 2978 ml 120 ml 240 ml Output Total 900 ml 20 ml 1200 ml Balance 125 ml 2958 ml -1080 ml 240 ml Intake Oral 0 ml 240 ml 120 ml 240 ml IV Total 1025 ml 938 ml Other 1800 ml Output Urine Total 900 ml 0 ml 1200 ml Estimated Blood Loss 20 ml Other 0 ml # Voids 2 4 # Bowel Movements 0 0 0 0 Result Diagram: 09/09/16 0443 09/07/16 2324 Imaging Last Impressions GI Procedure 09/08/16 0000 Signed Impressions: Service Date/Time: August 12:53 - CONCLUSION: ERCP as above. Connor Blackmon MD Abdomen/Pelvis CT 09/07/16 1711 Signed Impressions: Service Date/Time: Wednesday, September 07, 2016 18:09 - CONCLUSION: 1. Biliary ductal dilatation to 16 mm with findings most characteristic of choledocholithiasis in the distal common bile duct. 2. Aortobifemoral graft which appears patent. 3. No bowel obstruction or free fluid. 4. Healing right posterior 12th rib fracture with callus formation. Ian Hammond MD Objective Remarks General: No acute distress. Heart: Regular rate and rhythm. No murmur. Lungs: Clear to auscultation bilaterally. No wheezes, rales, or rhonchi. Breathing is nonlabored. Abdomen: Soft, nontender, nondistended. Midline surgical scar. Multiple small wounds from laparoscopic surgery today. Appropriately tender to palpation. Mildly distended. Positive bowel sounds. Extremities: No lower extremity edema. Psych: Alert and oriented. Procedures 09/08/16 ERCP 09/10/16 laparoscopic cholecystectomy Urinary Catheter: No Vascular Central Line Catheter: No A/P Problem List: (1) SIRS (systemic inflammatory response syndrome) ICD Code: R65.10 Status: Acute (2) Gallstone pancreatitis ICD Code: K85.10 Status: Acute (3) PAD (peripheral artery disease) ICD Code: I73.9 Status: Chronic Assessment and Plan 1. Acute gallstone pancreatitis: Resolved. 2. Cholelithiasis: Appreciate general surgery recommendations. Status post laparoscopic cholecystectomy, POD #1. Advance to full liquid diet. 3. Leukocytosis: Resolved. 4. History of peripheral arterial disease: Continue aspirin. 5. DVT prophylaxis: Lovenox. Discharge Planning Possible discharge home tomorrow if tolerating diet and cleared by general surgery. Igor Porter MD Sep 11, 2016 11:59
[2016-09-11 12:00] VITALS: BP 148/78; PULSE 76; RESP 16; TEMP 98; O2SAT 95
[2016-09-11 12:16] LABS: HEMATOCRIT 40.1 % (39.0-51.0); MEAN CELL VOLUME 89.8 FL (80.0-100.0); MEAN CORPUSCULAR HEMOGLOBIN 30.6 PG (27.0-34.0); MEAN CORPUSCULAR HGB CONC 34.1 % (32.0-36.0); PLATELET COUNT 282 TH/MM3 (150-450); RED BLOOD COUNT 4.47 MIL/MM3 (4.50-5.90); RED CELL DISTRIBUTION WIDTH 14.2 % (11.6-17.2); REVIEW FLAG FINAL; WHITE BLOOD COUNT 8.3 TH/MM3 (4.0-11.0)
[2016-09-11 12:57] LABS: ALKALINE PHOSPHATASE 244 U/L (45-117); ALT (GPT) 40 U/L (12-78); ANION GAP 8 MEQ/L (5-15); AST (GOT) 20 U/L (15-37); BICARBONATE 27.6 MEQ/L (21.0-32.0); BLOOD UREA NITROGEN 2 MG/DL (7-18); CHLORIDE 102 MEQ/L (98-107); GLOMERULAR FILTRATION RATE 142 ML/MIN (>89); POTASSIUM 3.6 MEQ/L (3.5-5.1); SODIUM (NA) 138 MEQ/L (136-145); TOTAL BILIRUBIN ADULT 0.8 MG/DL (0.2-1.0)
[2016-09-11 16:00] VITALS: BP 147/82; PULSE 74; RESP 16; TEMP 98.5; O2SAT 93
[2016-09-11 20:00] VITALS: BP 142/80; PULSE 89; RESP 17; TEMP 99; O2SAT 97
[2016-09-11] MEDS: ENOXAPARIN SODIUM 40 MG/0.4 ML SYRINGE SQ SCH (21:22)
[2016-09-12] VITALS: BP 124/76; PULSE 82; RESP 17; TEMP 97.9; O2SAT 98
[2016-09-12] MEDS: metroNIDAZOLE 500 MG TAB PO SCH (06:21)
[2016-09-12] MEDS: SODIUM CHLOR 0.9% 1000 ML INJ 1,000 ML IV SCH (06:22)
[2016-09-12 07:40] VITALS: BP 143/77; PULSE 79; RESP 17; TEMP 96.4; O2SAT 95
[2016-09-12] MEDS: LEVOFLOXACIN 500 MG PREMIX INJ 100 ML IV SCH (07:42)
[2016-09-12] MEDS: SODIUM CHLORIDE 0.9% FLUSH 5 ML FLUSH IV SCH (07:44)
[2016-09-12] MEDS ORDERED: oxyCODONE/ACETAMINOPHEN 5 MG/325 MG TAB PO PRN (10:00)
[2016-09-12] MEDS ORDERED: OXYC1TAB63 PO (10:21)
[2016-09-12] MEDS ORDERED: BISACODYL 10 MG SUPP RECTAL PRN (10:30)
[2016-09-12] MEDS ORDERED: SOD PHOSPHATE/SOD BIPHOSPHATE (ADULT) ENEMA 133ML PR PRN (10:30)
[2016-09-12] MEDS ORDERED: MAGNESIUM HYDROXIDE SUSP 30 ML CUP PO ONE (10:30)
--- NOTE | 2016-09-12 10:59 | HHI.PR ---
Subjective Subjective Notes no acute issues, +flatus, no bm, pain controlled, minimal nausea Objective Vitals/I&O Vital Signs Date Time Temp Pulse Resp B/P Pulse Ox O2 Delivery O2 Flow Rate FiO2 09/12/16 07:40 96.4 79 17 143/77 95 09/10/16 10:00 Nasal Cannula 2 09/09/16 01:34 21 Labs Laboratory Tests Test 09/11/16 11:40 White Blood Count 8.3 Red Blood Count 4.47 Hemoglobin 13.7 Hematocrit 40.1 Mean Corpuscular Volume 89.8 Mean Corpuscular Hemoglobin 30.6 Mean Corpuscular Hemoglobin 34.1 Concent Red Cell Distribution Width 14.2 Platelet Count 282 Mean Platelet Volume 8.8 Sodium Level 138 Potassium Level 3.6 Chloride Level 102 Carbon Dioxide Level 27.6 Anion Gap 8 Blood Urea Nitrogen 2 Creatinine 0.59 Estimat Glomerular Filtration 142 Rate Random Glucose 94 Calcium Level 8.1 Total Bilirubin 0.8 Aspartate Amino Transf 20 (AST/SGOT) Alanine Aminotransferase 40 (ALT/SGPT) Alkaline Phosphatase 244 Total Protein 5.8 Albumin 2.2 Lipase 68 Abdomen: Non-distended, Other (soft midl ttp, incision well healing) A/P Assessment and Plan POD 2 Lap yohan for gallstone pancreatitis PLAN OOB reg diet, bowel regimen pain control transition to po pain meds ok to d/c home f/u 2weeks with Jerry Escobar MD Sep 12, 2016 10:59
[2016-09-12 12:00] VITALS: BP 143/83; PULSE 94; RESP 17; TEMP 97.9; O2SAT 95
--- NOTE | 2016-09-12 12:48 | HHI.DS ---
Discharge Summary Admission Date Sep 07, 2016 at 6:41 pm Discharge Date: Sep 12, 2016 Admitting Diagnosis Acute Pancreatitis (1) SIRS (systemic inflammatory response syndrome) ICD Code: R65.10 Diagnosis: Principal (2) Gallstone pancreatitis ICD Code: K85.10 Diagnosis: Principal (3) PAD (peripheral artery disease) ICD Code: I73.9 (4) Acute pancreatitis ICD Code: K85.90 Diagnosis: Principal Procedures 09/08/16 ERCP 09/10/16 laparoscopic cholecystectomy Brief History - From Admission This is a 56-year-old male without significant past medical history who presents complaining of abdominal pain which is localized in the epigastrium, severe, 10 foci tenderness per the patient, stabbing and constant. The patient denies any associated nausea, vomiting or diarrhea. The patient also denies any fevers or chills. Denies chest pain or shortness of breath. Patient states that moving would make the pain worse as well as walking and pain improved lying down and with pain medications. The patient also denies any hematuria. CBC/BMP: 09/11/16 1140 09/11/16 1140 Significant Findings Laboratory Tests Test 09/11/16 11:40 Red Blood Count 4.47 MIL/MM3 (4.50-5.90) Blood Urea Nitrogen 2 MG/DL (7-18) Creatinine 0.59 MG/DL (0.60-1.30) Calcium Level 8.1 MG/DL (8.5-10.1) Alkaline Phosphatase 244 U/L (45-117) Total Protein 5.8 GM/DL (6.4-8.2) Albumin 2.2 GM/DL (3.4-5.0) Lipase 68 U/L (73-393) Imaging Last Impressions GI Procedure 09/08/16 0000 Signed Impressions: Service Date/Time: August 12:53 - CONCLUSION: ERCP as above. Connor Blackmon MD Abdomen/Pelvis CT 09/07/16 1711 Signed Impressions: Service Date/Time: Wednesday, September 07, 2016 18:09 - CONCLUSION: 1. Biliary ductal dilatation to 16 mm with findings most characteristic of choledocholithiasis in the distal common bile duct. 2. Aortobifemoral graft which appears patent. 3. No bowel obstruction or free fluid. 4. Healing right posterior 12th rib fracture with callus formation. Ian Hammond MD PE at Discharge General: No acute distress. Heart: Regular rate and rhythm. No murmur. Lungs: Clear to auscultation bilaterally. No wheezes, rales, or rhonchi. Breathing is nonlabored. Abdomen: Soft, nontender, nondistended. Midline surgical scar. Multiple small wounds from laparoscopic surgery today. Appropriately tender to palpation. Mildly distended. Positive bowel sounds. Extremities: No lower extremity edema. Psych: Alert and oriented. Pt update on day of discharge Patient is doing well. No acute concerns. Pain well controlled. Denies any fever , chills. Hospital Course Mr. Partida is a pleasant 56 year old male who was admitted to the hospital due to abdominal pain. He was diagnosed with gallstone pancreatitis. Patient underwent cholecystomy. Patient was closely monitored. Patient tolerated diet well. After surgery rounds, patient was discharged home with pain medications as well as aspirin and Zofran. Patient was given follow up appointment general surgery. Discussed with General surgery prior to discharging patient. Pt Condition on Discharge: Good Discharge Disposition: Discharge Home Discharge Time: > 30 minutes Discharge Instructions DIET: Follow Instructions for: As Tolerated, No Restrictions Activities you can perform: Regular-No Restrictions Follow up Referrals: PCP Follow-up - 2 Weeks Surgical - 2 Weeks with Jerry Wallace MD New Medications: Oxycodone-Acetaminophen (Oxycodone-Acetaminophen) 5-325 mg Tab 1 TAB PO Q6H PRN PAIN #15 TAB Continued Medications: Aspirin (Aspirin) 81 Mg Chew 81 MG CHEW DAILY Ref 0 TAB Ondansetron Odt (Zofran Odt) 4 Mg Tab 4 MG SL Q6HR PRN Nausea/Vomiting #20 Ref 0 TAB Jasmeet Fisher DO Sep 12, 2016 12:47
[2016-09-12] MEDS ORDERED: ZOFR4TAB3 SL (13:23)
--- NOTE | 2016-09-13 10:52 | MP ---
cc: BJORN WALLACE MD DATE OF SURGERY 09/10/2016 PREOPERATIVE DIAGNOSIS Gallstone pancreatitis POSTOPERATIVE DIAGNOSIS Gallstone pancreatitis PROCEDURE PERFORMED Laparoscopic cholecystectomy SURGEON Dr. Bjorn Wallace ANNEALING TORCH OPERATOR See OR sheet ANESTHESIA GETA IV FLUIDS 1700 cc ESTIMATED BLOOD LOSS 20 cc. DRAINS None COMPLICATIONS None WOUND CLASSIFICATION Clean, contaminated SPECIMENS Gallbladder FINDINGS Distended gallbladder, adhesions. INDICATIONS The patient is a 56-hour-old male who presented with gallstone pancreatitis and significant abdominal pain. He stated the pain was going on for several weeks, but it acutely increased. He was evaluated with significance of transaminitis and lipase elevated consistent with acute pancreatitis and stones in the gallbladder. Therefore, a decision was made for laparoscopic cholecystectomy after the patient was evaluated. DETAILS OF THE PROCEDURE The patient was taken to the operating room suite, placed in a supine position. He was prepped and draped in the usual sterile fashion after induction of general endotracheal anesthesia. A brief time-out was done stating correct patient, procedure surgical site and we were all in agreement with this. Attention directed to the umbilicus where a small stab mary incision made over a previous incisional scar was done. A Veress needle was used and intra-abdominal placement was concerned with saline drop test. The abdomen insufflated to 250 mm pneumoperitoneum. The Veress needle was switched to a 5-mm trocar and endoscope and introduced under direct visualization. There was no evidence of injury. There was noted to be some adhesions cephalad along the scar. Three other ports were placed, one 12 mm epigastric port, followed by two 5 mm of right subcostal ports, one anterior axillary line and one in the midclavicular line. The patient then placed in reverse Trendelenburg and airplaned to the left. The gallbladder was observed noted to have a couple adhesions. These were taken down. The gallbladder was grasped and retracted cephalad. A [place] dissector and Electro-Bovie cautery was used to dissect the cystic duct and cystic artery. The cystic duct was dissected and a 10 mm of clip of wire was used, two proximal and one distal. The cystic artery was then dissected out and 5 mm clip wardrobe technician was used two proximal and one distal and Endoshears were used to transect the cystic artery. Next, a spatula electro-Bovie cautery was used to remove the gallbladder from the gallbladder fossa. Hemostasis was obtained with electro-Bovie cautery. The gallbladder was placed in an EndoCatch bag. Minimal bleeding from gallbladder bed suction irrigation used. After we were satisfied with this, pneumoperitoneum removed. Trocars removed under direct visualization. The 12 mm epigastric port was closed with a [id number] 0 Vicryl on a UR-6, local anesthetic injected at all port sites. 4-0 Monocryl used in a subcuticular fashion to the port sites. Sterile dressings placed including Mastisol and Steri-Strips. The patient tolerated the procedure well. All lap and instrument counts were correct at the end of the procedure. The patient was extubated and taken to PACU. MD HALLIE Cárdenas/MARIA G /11:42 AM /10:41 AM
== END 2016-09-12 14:13 | disposition home or self-care (01) | DRG 417 ==
LOC: NEPE 13:53 → NEDA 18:41 → NEDH 23:23 → N07B 09-08 14:14
PROVIDERS: ADMIT Hospitalist; ATTEND Hospitalist
PROC: 0FT44ZZ Resection of Gallbladder, Percutaneous Endoscopic Approach (ICD-10-PCS; principal; 2016-09-10 07:56)
DX: K80.70 Calculus of gallbladder and bile duct without cholecystitis without obstruction (principal); K85.10 Biliary acute pancreatitis without necrosis or infection; I73.9 Peripheral vascular disease, unspecified; J45.909 Unspecified asthma, uncomplicated; K82.8 Other specified diseases of gallbladder; F17.210 Nicotine dependence, cigarettes, uncomplicated
CPT/HCPCS: 74177; 74330; 80053; 80076; 81001; 83690; 85025; 85027; 88304; 93005; C1769; C2625; J0131; J1170; J1650; J1956; J2250; J2270; J2370; J2405; J2710; J3010; J7030; J7120; Q9967

== ENCOUNTER 2016-12-13 08:50 | Emergency (ER) | payer SELFPAY ==
[~2016-12-13] VITALS: Ht 177.8 cm; Wt 68.0 kg
[~2016-12-13 08:50] MED LIST changes: +ASPI81CH CHEW; -ASPI81TA11 PO; -ATOR20TA42 PO; -HYDRA50 PO; +OXYC1TAB63 PO; -PENT400 PO; -PERC5TAB12 PO; +ZOFR4TAB3 SL
[2016-12-13 08:51] VITALS: BP 157/72; PULSE 82; RESP 18; TEMP 98; O2SAT 97
[2016-12-13] MEDS ORDERED: ROBA500T PO (09:22)
[2016-12-13] MEDS ORDERED: IBUP800T23 PO (09:22)
--- NOTE | 2016-12-13 09:23 | PD ---
HPI Chief Complaint: Back/ Neck Pain or Injury Time Seen by Provider: 09:20 Travel History International Travel<30 days: No Contact w/Intl Traveler<30days: No Traveled to known affect area: No History of Present Illness HPI 56-year-old male presents emergency Department with complaint of left upper back pain since after falling backwards onto a ball. Denies shortness of breath, hemoptysis. Has tried taking Tylenol and ibuprofen with minimal relief of pain. Has not tried any other treatments to relieve the symptoms. Pain is worse with palpation and movement. No known allergies. Has no other medical complaints. No other modifying factors or associated signs and symptoms. PFSH Past Medical History Asthma: Yes Cancer: No Cardiac Catheterization: Yes Cardiovascular Problems: Yes Diabetes: No Diminished Hearing: No Endocrine: No Gastrointestinal Disorders: No Genitourinary: No Hepatitis: No Hiatal Hernia: No Hypertension: Yes Immune Disorder: No Musculoskeletal: No Neurologic: No Psychiatric: No Reproductive: No Respiratory: Yes (asthma) Thyroid Disease: No Tetanus Vaccination: > 5 Years Influenza Vaccination: No Past Surgical History Abdominal Surgery: No AICD: No Cardiac Surgery: No Ear Surgery: No Endocrine Surgery: No Eye Surgery: No Genitourinary Surgery: No Gynecologic Surgery: No Joint Replacement: No Oral Surgery: No Pacemaker: No Thoracic Surgery: No Tonsillectomy: Yes Other Surgery: Yes Social History Alcohol Use: No Tobacco Use: Yes (/2 PPD) Substance Use: No Allergies-Medications (Allergen,Severity, Reaction): Coded Allergies: No Known Allergies (Verified , 12/13/16) Reported Meds & Prescriptions Reported Meds & Active Scripts Active Ibuprofen 800 Mg Tab 800 Mg PO Q6HR PRN Robaxin (Methocarbamol) 500 Mg Tab 500 Mg PO QID PRN Oxycodone-Acetaminophen 5-325 mg Tab 1 Tab PO Q6H PRN Reported Zofran Odt (Ondansetron Odt) 4 Mg Tab 4 Mg SL Q6HR PRN Aspirin 81 Mg Chew 81 Mg CHEW DAILY Review of Systems Except as stated in HPI: all other systems reviewed are Neg Physical Exam Narrative GENERAL: Well-nourished, well-developed patient, in no acute distress SKIN: Warm and dry. HEAD: Atraumatic. Normocephalic. EYES: Pupils equal and round. No scleral icterus. No injection or drainage. ENT: Mucosa pink and moist. Airway patent. NECK: Trachea midline. CARDIOVASCULAR: Regular rate. RESPIRATORY: No accessory muscle use. Breath sounds clear and equal bilaterally. No retractions or tachypnea. GASTROINTESTINAL: Flat. MUSCULOSKELETAL: Ambulatory with normal gait. Sitting up in bed at 90. No obvious deformities. No clubbing. No cyanosis. No edema. BACK: No midline point tenderness on palpation of the thoracic spine. Tenderness on palpation of left mid back just below the scapula; area was without erythema, edema, ecchymosis, crepitance. No obvious deformities. NEUROLOGICAL: Awake and alert. Oriented 3. No obvious cranial nerve deficits. Motor grossly within normal limits. Normal speech. Moves all extremities. 5/5 strength to all extremities. Sensory intact. PSYCHIATRIC: Appropriate mood and affect; insight and judgment normal. Data Data Last Documented VS Vital Signs Date Time Temp Pulse Resp B/P Pulse Ox O2 Delivery O2 Flow Rate FiO2 12/13/16 08:51 98.0 82 18 157/72 97 Room Air Orders Ketorolac Inj (Toradol Inj) (12/13/16 09:30) Orphenadrine Inj (Norflex Inj) (12/13/16 09:30) MDM Medical Decision Making Medical Screen Exam Complete: Yes Emergency Medical Condition: Yes Medical Record Reviewed: Yes Differential Diagnosis Back strain, muscle strain, contusion Narrative Course 56-year-old male with strain of left upper back muscle. No midline point tenderness on palpation of the thoracic spine. Patient is ambulatory with normal gait. Toradol and Norflex administered in the ER. Ibuprofen and Robaxin prescribed for home. Patient verbalizes understanding and agreement with treatment plan. Patient is medically cleared and stable for discharge. Discussed reasons to return to the emergency department. Instructed patient to follow up with primary care provider. Patient agrees with treatment plan. The patients vital signs are stable and the patient is stable for outpatient follow- up and treatment. Patient discharged home, stable and in no acute distress. Diagnosis Primary Impression: Muscle strain of left upper back Qualified Code: S29.012A - Muscle strain of left upper back, initial encounter Referrals: Primary Care Physician Patient Instructions: General Instructions, Muscle Strain (ED) Additional Instructions: Tylenol or ibuprofen as directed and as needed to reduce pain Robaxin as prescribed for muscle spasms Get adequate rest Ice and/or heating pad to affected area to reduce pain Avoid aggravating activity; increase activity as tolerated Follow-up with primary care provider Return to the emergency department immediately with worsening symptoms Med/Other Pt SpecificInfo: Prescription(s) given Scripts Ibuprofen 800 Mg [id number] Mg PO Q6HR PRN (PAIN) #30 TAB Ref 0 Prov:Dinora Garcia 12/13/16 Methocarbamol (Robaxin)500 Mg [id number] Mg PO QID PRN (MUSCLE SPASM) #30 TAB Ref 0 Prov:Dinora Garcia 12/13/16 Disposition: 01 DISCHARGE HOME Condition: Stable Dinora Garcia December 13, 2016 09:22
[2016-12-13] MEDS ORDERED: ORPHENADRINE INJ 60 MG/2 ML AMP IM ONE (09:30)
[2016-12-13] MEDS ORDERED: KETOROLAC TROMETHAMINE 60 MG/2 ML (IM) VIAL IM ONE (09:30)
== END 2016-12-13 09:56 | disposition home or self-care (01) ==
LOC: NEPK 08:50
DX: S29.012A Strain of muscle and tendon of back wall of thorax, initial encounter (principal); I10 Essential (primary) hypertension; F17.210 Nicotine dependence, cigarettes, uncomplicated; W18.30XA Fall on same level, unspecified, initial encounter
CPT/HCPCS: 96372; 99283; J1885; J2360